=== PATIENT | female | born 1945 | race Caucasian/White ===

== ENCOUNTER → 2020-09-29 | Outpatient (CLI) | payer MEDICARE, OTHER ==
[2020-09-29 12:44] LABS: HEMATOCRIT 40.1 % (37.0-47.0); HEMOGLOBIN 13.6 g/dL (12.5-16.0)
== END ==
LOC: LAB 12:20
PROVIDERS: Internal Medicine Gastroenterology
DX: E83.110 Hereditary hemochromatosis (principal)

== ENCOUNTER → 2020-10-28 | Outpatient (CLI) | payer MEDICARE, OTHER ==
[2020-10-28 12:04] LABS: HEMATOCRIT 40.1 % (37.0-47.0); HEMOGLOBIN 13.2 g/dL (12.5-16.0)
== END ==
LOC: LAB 11:51
PROVIDERS: Internal Medicine Gastroenterology
DX: E83.110 Hereditary hemochromatosis (principal); Z79.899 Other long term (current) drug therapy

== ENCOUNTER → 2020-11-25 | Outpatient (CLI) | payer MEDICARE, OTHER ==
[2020-11-25 13:02] LABS: HEMOGLOBIN 12.4 g/dL (12.5-16.0)
== END ==
LOC: LAB 12:50
PROVIDERS: Internal Medicine Gastroenterology
DX: E83.110 Hereditary hemochromatosis (principal)